=== PATIENT | male | born 1985 | race Caucasian/White ===

== ENCOUNTER 2022-03-15 18:04 | Emergency (ER) | payer MEDICARE, OTHER ==
[2022-03-15] MEDS ORDERED: MEDROL DOSEPAK 24 MG PO (22:32)
[2022-03-15] MEDS ORDERED: ZYRTEC10 M3 PO (22:32)
[2022-03-15] MEDS ORDERED: ZITHROMAX250 MG PO (22:49)
== END 2022-03-15 22:41 | disposition home or self-care (01) ==
LOC: ER1 18:04
DX: J02.9 Acute pharyngitis, unspecified (principal); R59.0 Localized enlarged lymph nodes; Z91.048 Other nonmedicinal substance allergy status; Z20.822 Contact with and (suspected) exposure to COVID-19
CPT/HCPCS: 0240U; 70490; 87081; 87880; 99283